=== PATIENT | male | born 1965 | race Caucasian/White ===

== ENCOUNTER → 2020-06-12 11:26 | Outpatient (CLI) | payer BC, SELFPAY ==
--- NOTE | 2020-06-12 11:29 | XR_ITS ---
PROCEDURE: XR KUB CLINICAL INDICATION: ureteral stone COMPARISON: No exams were available for comparison FINDINGS: There is an 8 mm stone overlying the lower pole the left kidney. There are multiple pelvic calcifications on both sides most of which are felt to be due to phleboliths. A 4 mm calcific density is present just inferior to the left SI joint and could represent a ureteral stone. Multiple small calcific densities are present in the lower pelvis. Please correlate with recent CT scan.. IMPRESSION: Left nephrolithiasis. Multiple pelvic calcifications nonspecific several of which could be due to ureteral calculi but are most likely phleboliths. Please correlate with recent CT scan performed at an outside institution. Dictated by: Sathish Willard MD 06/12/2020 12:48 Sathish Willard MD in [facility] 06/12/2020 12:48
== END ==
PROVIDERS: PCP Family Medicine; Visit Provider Urology
DX: N20.1 Calculus of ureter (principal)
CPT/HCPCS: 74018